=== PATIENT | female | born 1970 | race African-American/Black ===

== ENCOUNTER 2018-06-14 00:09 | Emergency (ER) | payer MEDICAID ==
[~2018-06-14] VITALS: Ht 175.3 cm; Wt 91.0 kg
[2018-06-14] MEDS ORDERED: ONDANSETRON HCL 4MG/2ML INJ IV STA (01:31)
[2018-06-14] MEDS ORDERED: MECLIZINE 25MG TABLET PO ONE (01:45)
[2018-06-14 02:34] LABS: BASOPHILS % 0.6 % (0.0-2.0); HEMATOCRIT. 40.3 % (36.0-48.0); HEMOGLOBIN. 13.4 g/dL (12.0-16.0); LYMPHOCYTES % 22.1 % (20.0-50.0); MEAN CORPUSCULAR HEMOGLOBIN 29.1 pg (28.0-32.0); MEAN CORPUSCULAR VOLUME 87.4 fL (81.0-99.0); MEAN PLATELET VOLUME 8.8 fl (7.4-10.4); MONOCYTES % 11.2 % (2.0-8.0); NEUTROPHILS % 65.1 % (40.0-76.0); PLATELET 281 x1000/uL (130-400); RED BLOOD CELL COUNT 4.61 mill/uL (4.2-5.4); RED CELL DISTRIBUTION WIDTH 14.5 % (11.6-14.6)
[2018-06-14 02:40] LABS: CHLORIDE 105 mEq/L (98-107)
[2018-06-14 06:26] VITALS: BP 140/86
== END 2018-06-14 07:01 | disposition home or self-care (01) ==
LOC: ER 00:09
DX: R42 Dizziness and giddiness (principal); R51 Headache; R11.0 Nausea
CPT/HCPCS: 36415; 70450; 71045; 80048; 81025; 84484; 85025; 93005; 99285; J2405; Z7610; J8597

== ENCOUNTER 2018-06-28 23:48 | Emergency (ER) | payer MEDICAID ==
[~2018-06-28] VITALS: Ht 170.2 cm; Wt 78.0 kg
[2018-06-29] MEDS ORDERED: MECLIZINE 25MG TABLET PO ONE ×2 (00:15→01:30)
[2018-06-29] MEDS ORDERED: PROCHLORPERAZINE MALEATE 10MG TABLET PO ONE (00:15)
[2018-06-29] MEDS ORDERED: ONDANSETRON 4MG ODT PO ONE (01:30)
[2018-06-29 02:10] VITALS: BP 122/82
== END 2018-06-29 02:16 | disposition home or self-care (01) ==
LOC: ER 23:48
DX: R42 Dizziness and giddiness (principal); R11.2 Nausea with vomiting, unspecified; Z98.890 Other specified postprocedural states
CPT/HCPCS: 99284; Q0162; J8597; Q0164